=== PATIENT | female | born 2000 | race Caucasian/White ===

== ENCOUNTER 2024-06-29 14:49 | Emergency (ER) | payer BC, SELFPAY ==
[2024-06-29 14:57] VITALS: BP 134/99
--- NOTE | 2024-06-29 15:55 | ED.GENMED ---
History of Present Illness
General
Chief Complaint: Crisis Evaluation
Source: patient
Exam Limitations: none
Time Seen by Provider: 06/29/24 15:17
Nursing documentation reviewed up to this point in time: agreed with
History of Present Illness
History of Present Illness:
Patient is a 24-year-old female brought by family for 302. Parents are filing a 302 as pt has been 'acting psychotic' as per crisis.
Parents 302 request reports that patient 'is experiencing psychotic symptoms and not sleeping and not eating much. ' Parents report the patient is 'experiencing hallucinations and delusions and refusing to eat.' They do report she is 'paranoid.
'They do report she 'ran out of her medications,' however her appoint with psychiatry is on Monday.
Patient presents awake alert she is not answering questions and mumbling. She is able to tell me however she is aware she is a [facility] month and year. She has no complaints. She shakes her head no when I ask her if she has any suicidal
thoughts. She denies any pain.
Review of Systems
Review of Systems
Allergies reviewed?: Yes
All Other Systems: ROS reviewed and negative except as documented in HPI and ROS
Constitutional: Reports no symptoms
EENT: Reports no symptoms
Respiratory: Reports no symptoms
ABD/GI: Reports no symptoms
: Reports no symptoms
Musculoskeletal: Reports no symptoms
Skin: Reports no symptoms
Neurological: Reports no symptoms
Psychiatric: Reports no symptoms; Denies suicidal
Phy Exam
General Physical Exam
General Presentation: no apparent distress
General age: appears stated age
General Skin: warm and dry
General Habitus: normal
General Mental: alert
General Hydration: appears well hydrated
Cardiovascular Exam
Cardiovascular Exam: regular rate/rhythm, no murmur and normal peripheral pulses
Pulmonary Exam
Pulmonary Exam: lungs clear and no respiratory distress
Neurological Exam
Neurological Exam: alert and oriented x3
Musculoskeletal Exam
Musculoskeletal Exam: full ROM
Skin Exam
Skin Exam: normal color and warm/dry
Psychiatric Exam
Psychiatric Exam: other (mumbling does not answer questions with appropriate responses )
Course
Orders/Labs/Results
Orders:
Orders
06/29/24 15:58
Urine Drug Abuse Screen Urgent
Date Specimen was Collected: 06/30/24
Time Specimen was Collected: 00:05
06/29/24 15:59
Test Result ONCE
06/29/24 16:23
Crisis Consult Urgent
Reason for Consult: psychosis
06/29/24 16:43
Acetaminophen Urgent
Alcohol Urgent
Complete Blood Count/With Diff Urgent
Comprehensive Metabolic Panel Urgent
HCG, Serum Qualitative Screen Urgent
Comment: ADDON
Salicylate Urgent
06/29/24 17:48
Add On- LAB Urgent
Tests Added?: HCG Qual serum
06/29/24 18:37
Telemedicine Psychiatry Conslt Urgent
Service Line: Psychiatric
Nursing Station
Ordering Physician: Josy Lauren
Referring Physician
Cart Name: Wili
Psych Consult Reason: Suspect self/harm others
Psychiatry Consult Location: ED
Patient Needs to be Seen Emergently: Yes
Patient Admitted for NonPsychiatric Reasons: No
Patient in Restraints: No
Patient Requires a Restoration Technician: No
Patient's Legal Status is Involuntary: No
Patient Requires a Guardian: No
06/30/24 00:10
Fentanyl, Urine Urgent
Abnormal Lab Results
06/29/24 06/30/24
16:43 00:10
Absolute Monos (auto) 0.7 H 10^3/uL
(0.1-0.6)
AST 44 H U/L
(14-36)
Salicylates < 1.0 L mg/dl
(2.0-20.0)
Acetaminophen < 10 L ug/ml
(10-30)
Ur Amphetamines Screen Positive H
(Negative)
U Methamphetamines Scrn Positive H
(Negative)
U Marijuana (THC) Screen Positive H
(Negative)
06/29/24 16:43
06/29/24 16:43
Vital Signs
Initial and Last Documented VS:
Initial Vital Signs
Temp Pulse Resp BP Pulse Ox
97.6 F 100 16 134/99 100
06/29/24 14:57 06/29/24 14:57 06/29/24 14:57 06/29/24 14:57 06/29/24 14:57
Last Documented Vital Signs
Temp Pulse Resp BP Pulse Ox
97.6 F 100 16 134/99 100
06/29/24 14:57 06/29/24 14:57 06/29/24 14:57 06/29/24 14:57 06/29/24 14:57
MDM/Problems Addressed
Differential Diagnosis Includes:
not limited to: Psychotic paranoid behavior; bipolar exacerbation(patient has not been on her medication)
MDM/Problems Addressed:
24 yr old female brought to the ER as a 302 request by mom. patient was eval by crisis and crisis informs me that initial 302 was not upheld by mental health delegate.
I spoke with patient's mom who is concerned the patient is a danger to herself. She reports patient has not been on her medications since June 07 and when this happens patient will often run into traffic and requires hospitalization. She is
very concerned for patient's safety.
I did renotify crisis and request a telemetry psych consult .
1849: Awaiting telepsych consult patient calm cooperative and crisis 2 security at bedside. Mother in crisis waiting room . Care of pt transferred to DR Mo.
*Pulse Oximetry
Patient hypoxic: no
*Critical Care Note
Total Time (30-74mins, 75-104mins- exclusive of procedures): Not Applicable
ED Attending Note
-
Portions of this chart may have been created with voice recognition software.� Occasional wrong word or��sound alike� substitutions may have occurred due to the inherent limitations of voice recognition software.
Discharge Plan
Departure
Patient Disposition: Psych Facility
Date of Disposition: 06/30/24
Time of Disposition: 01:20
Discharge Problem:
Psychosis
Referrals:
NONE,* [Family Provider] -
Interventions
Interventions:
*Risk Screen - Suicide Last Done: 06/29/24 14:57
*General Assessment Last Done: 06/29/24 14:57
*Neglect/Abuse Screening Last Done: 06/29/24 14:57
ED- Fall Risk Assessment Last Done: 06/29/24 15:00
*ED COVID-19 Vaccine History Last Done: 06/29/24 14:57
*Nursing Disposition Last Done: 06/30/24 06:11
ED-Psychological Assessment Last Done: 06/29/24 15:00
Discharge Date and Time
Discharge Date/Time: 06/30/24 06:13
Print Language: ANDORRAN
[2024-06-29 16:59] LABS: % Basophils 0.5 % (0-2); % Eosinophils 1.2 % (0-6); % Immature Granulocytes 0.3 % (0-0.5); % Lymphocytes 28.3 % (20.5-51.1); % Monocytes 8.7 % (1.7-9.3); Absolute Eosinophils 0.1 10^3/uL (0-0.7); Absolute Lymphocytes 2.2 10^3/uL (1.2-3.4); Absolute Monocytes 0.7 10^3/uL (0.1-0.6); Absolute Neutrophils 4.7 10^3/uL (1.4-6.5); Hematocrit 37.2 % (37.0-47.0); Hemoglobin 12.8 g/dL (12.0-16.0); Mean Corp Hgb Conc. 34.4 g/dL (33.0-37.0); Mean Corpuscular Hgb 28.3 pg (27.0-31.0); Mean Corpuscular Volume 82.1 fL (81.0-99.0); Mean Platelet Volume 9.3 fL (7.4-10.4); Nucleated Red Blood Cells % 0 %; Platelet Count 258 10^3/uL (130-400); Red Blood Cell Count 4.53 10^6/uL (4.20-5.40); Red Cell Dist. Width 13.8 % (11.5-14.5); White Blood Cell Count 7.6 10^3/uL (4.8-10.8)
[2024-06-29 17:20] LABS: ALT (SGPT) 29 U/L (0-35); AST (SGOT) 44 U/L (14-36); Acetaminophen < 10 ug/ml (10-30); Albumin 4.3 g/dl (3.5-5.0); Alkaline Phosphatase 57 U/L (38-126); Blood Urea Nitrogen 14 mg/dl (7-17); Calcium 9.5 mg/dl (8.4-10.2); Carbon Dioxide 25 mmol/L (22-30); Chloride 102 mmol/L (98-107); Glucose 80 mg/dl (70-99); Potassium 3.8 mmol/L (3.5-5.1); Salicylate < 1.0 mg/dl (2.0-20.0); Sodium 137 mmol/L (135-145); Total Bilirubin 0.5 mg/dl (0.2-1.3); Total Protein 7.3 g/dl (6.3-8.2); eGFR > 60.00
[2024-06-29 17:25] LABS: Alcohol None Detected
[2024-06-29 18:19] LABS: HCG, Serum Qualitative Screen Negative
[2024-06-30 00:37] LABS: Amphetamines Positive (Negative); Barbiturates Negative (Negative); Benzodiazepines Negative (Negative); Buprenorphine Negative (Negative); Cocaine Negative (Negative); Marijuana Positive (Negative); Methadone Negative (Negative); Methamphetamines Positive (Negative); Opiates Negative (Negative); Phencyclidine Negative (Negative); Tricyclic Antidepressants Negative (Negative)
[2024-06-30 00:45] LABS: Fentanyl, Urine Negative (Negative)
== END 2024-06-30 06:13 ==
LOC: EMR 14:49
PROVIDERS: Nurse Practitioner; EMERGENCY PHYSICIAN Emergency Medicine
DX: F20.9 Schizophrenia, unspecified (principal); F31.9 Bipolar disorder, unspecified; Z60.2 Problems related to living alone; Z91.148 Patient's other noncompliance with medication regimen for other reason
CPT/HCPCS: 99283; 80053; 80143; 80179; 80306; 80307; 82077; 84703; 85025

== ENCOUNTER 2024-07-07 18:54 | Emergency (ER) | payer BC, SELFPAY ==
[2024-07-07 19:14] VITALS: BP 142/92
--- NOTE | 2024-07-07 19:19 | ED.GENMED ---
History of Present Illness
General
Chief Complaint: Psychiatric Problem
Source: patient and family (Mother)
Exam Limitations: none
Time Seen by Provider: 07/07/24 19:10
History of Present Illness
History of Present Illness:
This is a 24 year old female that is brought in by mom with c/o Suicidal behavior. Mom states that she was here 2 days ago and was denied a 302. Today patient told mom to give her a shot like they do dogs so she wont' wake up. Mom states that she is
psychotic and has not taken any medication since Jun 07. Mom states that she is not eating or sleeping. Patient just wants to sign herself out. Patient states that she has had chest pain, nausea and feels that this is her anxiety. Denies any
fever, chills, SOB, abd pain, vomiting, diarrhea, headache, dizziness.
Past History
Past History
ED Past Medical History: Asthma and Psychiatric (Anxiety, Bipolar Depression)
ED Past Surgical History: Orthopedic (knee surgery)
Social History
Tobacco: Vaping
Alcohol: Occasional
Personal: Single
Living: with family
Review of Systems
Review of Systems
All Other Systems: ROS reviewed and negative except as documented in HPI and ROS
Constitutional: Reports no symptoms; Denies fever or chills
EENT: Reports no symptoms
Respiratory: Denies cough or trouble breathing
Cardiac: Reports chest pain
ABD/GI: Reports nausea; Denies abdominal pain, vomiting or diarrhea
: Reports no symptoms; Denies dysuria, frequency or urgency
Musculoskeletal: Reports no symptoms
Skin: Reports no symptoms
Neurological: Reports no symptoms; Denies dizzy or headache
Psychiatric: Reports anxiety and suicidal
Phy Exam
General Physical Exam
General Presentation: no apparent distress
General age: appears stated age
General Skin: warm and dry
General Habitus: normal
General Mental: alert
General Hydration: appears well hydrated
ENT Exam
ENT Exam: TM's normal and neck supple
Eye Exam
Eye Exam: EOMI
Cardiovascular Exam
Cardiovascular Exam: regular rate/rhythm, no edema, no murmur and normal peripheral pulses
Pulmonary Exam
Pulmonary Exam: lungs clear, no respiratory distress, no rales, chest non tender, no crackles, no rhonchi, no wheezing and no cough
Gastrointestinal Exam
Gastrointestinal Exam: normal bowel sounds, non tender, soft, no organomegaly, no pulsatile mass and non distended
Musculoskeletal Exam
Musculoskeletal Exam: full ROM
Skin Exam
Skin Exam: normal color, warm/dry and no petechia
Psychiatric Exam
Psychiatric Exam: anxious and suicidal
Course
Orders/Labs/Results
Orders:
Orders
07/07/24 19:18
Crisis Consult Urgent
Reason for Consult: Psychotic, Not taking medication, SI
07/07/24 21:16
Test Result ONCE
07/07/24 21:57
Complete Blood Count/With Diff Urgent
Comprehensive Metabolic Panel Urgent
HCG, Serum Qualitative Screen Urgent
07/07/24 22:10
Urine Drug Abuse Screen Urgent
Abnormal Lab Results
07/07/24
21:57
Hct 36.6 L %
(37.0-47.0)
Absolute Monos (auto) 1.1 H 10^3/uL
(0.1-0.6)
Monocytes % 11.9 H %
(1.7-9.3)
Potassium 3.4 L mmol/L
(3.5-5.1)
BUN 29 H mg/dl
(7-17)
AST 38 H U/L
(14-36)
07/07/24 21:57
07/07/24 21:57
Dehydration. AST slightly elevated. Potassium very slightly low.
Vital Signs
Initial and Last Documented VS:
Initial Vital Signs
Temp Pulse Resp BP Pulse Ox
98.4 F 88 20 142/92 99
07/07/24 19:14 07/07/24 19:14 07/07/24 19:14 07/07/24 19:14 07/07/24 19:14
Last Documented Vital Signs
Temp Pulse Resp BP Pulse Ox
98.4 F 88 20 142/92 99
07/07/24 19:14 07/07/24 19:14 07/07/24 19:14 07/07/24 19:14 07/07/24 19:14
MDM/Problems Addressed
Differential Diagnosis Includes:
Suicidal, Anxious
MDM/Problems Addressed:
This is a 24 year old female that is brought in by mom with c/o psychosis. Mom states that she was here 2 days ago and now the patient states that she just wants to get a shot like a dog so she won't wake up. Mom states that she is not eating or
drinking. Patient rambling about not being social and just sitting. Mom states that she has not taken any of her medication since Jun 07.
Crisis referral.
Patient 302 was upheld
Into see patient. Patient was notified that the 302 was upheld. Explained that it was requested that we get her labs. Patient states that she just wants to sleep. Explained that she can sleep after the labs are drawn.
Patient has been excepted to [facility] and will leaving in the morning.
Chronic conditions affecting care: Psychiatric illness
Acute Exacerbation and/or Progression of Chronic Illness: Psychiatric illness
*Pulse Oximetry
Patient hypoxic: not evaluated
*EKG
Interpreted by ED Provider?: NA
Rate: EKG- N/A
*[employer] Interpretation
Rate: [employer]- N/A
*Critical Care Note
Total Time (30-74mins, 75-104mins- exclusive of procedures): Not Applicable
ED Attending Note
-
Portions of this chart may have been created with voice recognition software.� Occasional wrong word or��sound alike� substitutions may have occurred due to the inherent limitations of voice recognition software.
Discharge Plan
Departure
Patient Disposition: Psych Facility
Date of Disposition: 07/07/24
Time of Disposition: 21:04
Patient with high blood pressure during this ER visit?: Yes
Condition: Good
Covid-19: Not Applicable
Discharge Problem:
Suicidal ideation, Unable to care for self
Referrals:
UNKNOWN - PT NOT,INTERVIEWE [Family Provider] -
Activity Restrictions/Additional Instructions:
Please follow up as directed by Crisis.
Interventions
Interventions:
*Risk Screen - Suicide Last Done: 07/07/24 19:14
*General Assessment Last Done: 07/07/24 19:14
*Neglect/Abuse Screening Last Done: 07/07/24 19:14
ED- Fall Risk Assessment Last Done: 07/07/24 19:20
*ED COVID-19 Vaccine History Last Done: 07/07/24 19:20
ED-Psychological Assessment Last Done: 07/07/24 19:21
Discharge Date and Time
Print Language: OMANI
[2024-07-07 22:08] LABS: % Basophils 0.3 % (0-2); % Eosinophils 1.7 % (0-6); % Immature Granulocytes 0.2 % (0-0.5); % Lymphocytes 33.1 % (20.5-51.1); % Monocytes 11.9 % (1.7-9.3); % Neutrophils 52.8 % (42.2-75.2); Absolute Eosinophils 0.2 10^3/uL (0-0.7); Absolute Lymphocytes 2.9 10^3/uL (1.2-3.4); Absolute Monocytes 1.1 10^3/uL (0.1-0.6); Absolute Neutrophils 4.7 10^3/uL (1.4-6.5); Hematocrit 36.6 % (37.0-47.0); Hemoglobin 12.6 g/dL (12.0-16.0); Mean Corp Hgb Conc. 34.4 g/dL (33.0-37.0); Mean Corpuscular Hgb 28.6 pg (27.0-31.0); Mean Corpuscular Volume 83.2 fL (81.0-99.0); Mean Platelet Volume 9.5 fL (7.4-10.4); Nucleated Red Blood Cells % 0 %; Platelet Count 275 10^3/uL (130-400); Red Cell Dist. Width 13.6 % (11.5-14.5); White Blood Cell Count 8.8 10^3/uL (4.8-10.8)
[2024-07-07 22:13] LABS: HCG, Serum Qualitative Screen Negative
[2024-07-07 22:17] LABS: ALT (SGPT) 24 U/L (0-35); AST (SGOT) 38 U/L (14-36); Albumin 4.2 g/dl (3.5-5.0); Alkaline Phosphatase 58 U/L (38-126); Blood Urea Nitrogen 29 mg/dl (7-17); Calcium 9.2 mg/dl (8.4-10.2); Carbon Dioxide 24 mmol/L (22-30); Chloride 100 mmol/L (98-107); Glucose 84 mg/dl (70-99); Potassium 3.4 mmol/L (3.5-5.1); Sodium 135 mmol/L (135-145); Total Bilirubin 0.5 mg/dl (0.2-1.3); eGFR > 60.00
[2024-07-08] MEDS: ATIVAN 2 MG PO (04:14)
== END 2024-07-08 09:50 ==
LOC: EMR 18:54
PROVIDERS: Clinical Nurse Specialist Family Health; EMERGENCY PHYSICIAN Student in an Organized Health Care Education/Training Program
DX: R45.851 Suicidal ideations (principal); F31.9 Bipolar disorder, unspecified; F41.9 Anxiety disorder, unspecified; F17.290 Nicotine dependence, other tobacco product, uncomplicated; J45.909 Unspecified asthma, uncomplicated; Z74.1 Need for assistance with personal care
CPT/HCPCS: 99285; 80053; 84703; 85025

== ENCOUNTER 2024-07-22 20:14 | Emergency (ER) | payer BC, SELFPAY ==
--- NOTE | 2024-07-22 20:15 | ED.GENMED ---
ED Provider Triage
<Thien Fan PA-C - Last Filed: 07/22/24 20:18>
-
Patient seen by provider in Triage?: Seen in Triage
Attestation: A medical screening examination has been initiated by a qualified medical provider. Based on the assessment performed at this time, it has been determined that an emergent medical condition may exist and the patient has been informed
that further medical evaluation and possible additional diagnostic testing may be needed.
HPI: 24-year-old female presenting to the ER via EMS after patient reports that mom called the ambulance because she thought patient was in a psychotic episode. Patient not further elaborating. Patient denying any SI or HI but any further history
is very difficult to obtain. Patient with very flat affect, making minimal eye contact. Patient was brought to crisis for one-to-one observation and crisis consultation.
GENERAL: Alert , in no apparent distress
EYE: No visual abnormalities.
NECK: Trachea midline
ENT: No visible abnormalities.
LUNGS: No acute respiratory distress
NEUROLOGICAL: Alert and oriented
SKIN: Skin intact. No visible changes.
MUSCULOSKELETAL: Moving extremities normally
PSYCH: Flat affect, answers questions with 1-2 words only
This is a medical evaluation conducted in person to initiate diagnostic evaluation and provide initial therapeutics. Please see further documentation by the treating clinician.
History of Present Illness
<Thien Fan PA-C - Last Filed: 07/22/24 20:18>
General
Chief Complaint: Psychiatric Problem
Time Seen by Provider: 07/22/24 20:45
<FREDRICK Mayfield - Last Filed: 07/23/24 00:28>
General
Source: patient
Exam Limitations: none
History of Present Illness
History of Present Illness:
This is a 24 year old female that is brought in by mom. Patient states that her mom thinks she is in Psychosis. Patient states that she is not suicidal and has no Suicidal thoughts. Patient is laughing at questions. States that she did have diarrhea
today. Denies any fever, chills, chest pain, SOB, abd pain, nausea, vomiting, headache, dizziness.
Past History
<Thien Fan PA-C - Last Filed: 07/22/24 20:18>
Past History
ED Past Medical History: Asthma and Psychiatric (Anxiety, Bipolar Depression)
ED Past Surgical History: Orthopedic (knee surgery)
Social History
Tobacco: Vaping
Alcohol: Occasional
Personal: Single
Living: with family
<FREDRICK Mayfield - Last Filed: 07/23/24 00:28>
Past History
ED Past Surgical History: Orthopedic (knee surgery Left knee surgery X 2)
Social History
Alcohol: None
Living: with family (Mother)
Review of Systems
<FREDRICK Mayfield - Last Filed: 07/23/24 00:28>
Review of Systems
All Other Systems: ROS reviewed and negative except as documented in HPI and ROS
Constitutional: Reports no symptoms; Denies fever or chills
EENT: Reports no symptoms
Respiratory: Reports no symptoms; Denies cough or trouble breathing
Cardiac: Reports no symptoms; Denies chest pain
ABD/GI: Reports diarrhea (Once Today); Denies abdominal pain, nausea or vomiting
: Reports no symptoms; Denies dysuria, frequency or urgency
Musculoskeletal: Reports no symptoms
Skin: Reports no symptoms
Neurological: Reports no symptoms; Denies dizzy or headache
Psychiatric: Reports no symptoms
Phy Exam
<FREDRICK Mayfield - Last Filed: 07/23/24 00:28>
General Physical Exam
General Presentation: no apparent distress
General age: appears stated age
General Skin: warm and dry
General Habitus: normal
General Mental: alert
General Hydration: appears well hydrated
ENT Exam
ENT Exam: TM's normal, pharynx normal and neck supple
Eye Exam
Eye Exam: EOMI
Cardiovascular Exam
Cardiovascular Exam: regular rate/rhythm, no edema, no murmur and normal peripheral pulses
Pulmonary Exam
Pulmonary Exam: lungs clear, no respiratory distress, no rales, chest non tender, no crackles, no rhonchi, no wheezing and no cough
Gastrointestinal Exam
Gastrointestinal Exam: normal bowel sounds, non tender, soft, no organomegaly, no pulsatile mass and non distended
Musculoskeletal Exam
Musculoskeletal Exam: full ROM and no edema
Skin Exam
Skin Exam: normal color, warm/dry, no rash and no petechia
Course
<Thien Fan PA-C - Last Filed: 07/22/24 20:18>
Orders/Labs/Results
Orders:
Orders
07/22/24 20:18
1:1 Observation - Suicide/ Violent Behavior As Directed
Crisis Consult Urgent
Reason for Consult: psychosis
Vital Signs
Initial and Last Documented VS:
Initial Vital Signs
Temp Pulse Resp BP Pulse Ox
98.4 F 98 20 126/90 100
07/22/24 20:16 07/22/24 20:16 07/22/24 20:16 07/22/24 20:16 07/22/24 20:16
Last Documented Vital Signs
Temp Pulse Resp BP Pulse Ox
98.4 F 98 20 119/81 100
07/22/24 20:16 07/22/24 20:16 07/22/24 20:16 07/22/24 21:27 07/22/24 20:16
<FREDRICK Mayfield - Last Filed: 07/23/24 00:28>
Orders/Labs/Results
Orders:
Orders
07/22/24 20:18
1:1 Observation - Suicide/ Violent Behavior As Directed
Crisis Consult Urgent
Reason for Consult: psychosis
Vital Signs
Initial and Last Documented VS:
Initial Vital Signs
Temp Pulse Resp BP Pulse Ox
98.4 F 98 20 126/90 100
07/22/24 20:16 07/22/24 20:16 07/22/24 20:16 07/22/24 20:16 07/22/24 20:16
Last Documented Vital Signs
Temp Pulse Resp BP Pulse Ox
98.4 F 98 20 119/81 100
07/22/24 20:16 07/22/24 20:16 07/22/24 20:16 07/22/24 21:27 07/22/24 20:16
<Kiran Vazquez DO - Last Filed: 07/22/24 21:55>
Orders/Labs/Results
Orders:
Orders
07/22/24 20:18
1:1 Observation - Suicide/ Violent Behavior As Directed
Crisis Consult Urgent
Reason for Consult: psychosis
Vital Signs
Initial and Last Documented VS:
Initial Vital Signs
Temp Pulse Resp BP Pulse Ox
98.4 F 98 20 126/90 100
07/22/24 20:16 07/22/24 20:16 07/22/24 20:16 07/22/24 20:16 07/22/24 20:16
Last Documented Vital Signs
Temp Pulse Resp BP Pulse Ox
98.4 F 98 20 119/81 100
07/22/24 20:16 07/22/24 20:16 07/22/24 20:16 07/22/24 21:27 07/22/24 20:16
<FREDRICK Mayfield - Last Filed: 07/23/24 00:28>
MDM/Problems Addressed
Differential Diagnosis Includes:
Psychiatric issues.
MDM/Problems Addressed:
This is a 24 year old female that is brought in by mom with c/o Psychosis. Patient states that her mom thinks she is in Psychosis. States that her mom controls her medication and she takes whatever she is given. Patient at this time seems to think
that answer questions is funny.
Spoke with Crisis and Mom is filling a 302. Will await further evaluation from Crisis.
Patient was seen by Crisis and they are waiting for Telepsych to see patient. They feel that the 302 may be upheld. Patient is being moved to the Crisis rooms in pod 1.
Patient was seen by Telepsych and the 302 was upheld.
Chronic conditions affecting care: Psychiatric illness
Acute Exacerbation and/or Progression of Chronic Illness: Psychiatric illness
<FREDRICK Mayfield - Last Filed: 07/23/24 00:28>
*Pulse Oximetry
Patient hypoxic: no
*EKG
Interpreted by ED Provider?: NA
Rate: EKG- N/A
*Telephone Maintainer Interpretation
Rate: Telephone Maintainer- N/A
*Critical Care Note
Total Time (30-74mins, 75-104mins- exclusive of procedures): Not Applicable
ED Attending Note
<Thien Fan PA-C - Last Filed: 07/22/24 20:18>
-
Portions of this chart may have been created with voice recognition software.� Occasional wrong word or��sound alike� substitutions may have occurred due to the inherent limitations of voice recognition software.
<Kiran Vazquez DO - Last Filed: 07/22/24 21:55>
ED Attending Note
Patient seen and examined by attending physician: Yes
I performed the substantive portion of visit, reviewed & personally made and approve the management plan that is documented in note by myself or CIARRA.: Yes
ED Attending Note:
agree with Nichelle's note.
Pt brought to the ER by parents for concerns for 'psychosis'. Pt has extensive psychiatric history and was recently discharged from an inpatient facility. Pt does not provide any useful history but laughs inappropriatly.
General: Awake, Alert,
Vitals: unremarkable
Head: Atraumatic
Eyes: Pupils equal, EOMI
Throat: Airway intact, no exudates
Neuro: Cranial nerves intact, muscle strength equal bilaterally, cerebellar exam normal
Skin: Warm, dry, no rash
Extremities: pulses equal b/l, no edema
Discharge Plan
Departure
Patient Disposition: Psych Facility
Date of Disposition: 07/23/24
Time of Disposition: 00:26
Patient with high blood pressure during this ER visit?: No
Condition: Good
Covid-19: Not Applicable
Discharge Problem:
Psychotic behavior, Bipolar
Instructions: Bipolar Disorder (DC)
Referrals:
UNKNOWN - PT NOT,INTERVIEWE [Family Provider] -
Activity Restrictions/Additional Instructions:
Follow up as directed by Crisis.
Interventions
Interventions:
*Risk Screen - Suicide Last Done: 07/22/24 20:16
*Neglect/Abuse Screening Last Done: 07/22/24 20:16
ED-Psychological Assessment Last Done: 07/22/24 21:59
Discharge Date and Time
Print Language: KOSOVAN
[2024-07-22 20:16] VITALS: BP 126/90
[2024-07-22 21:27] VITALS: BP 119/81
[2024-07-23 01:01] VITALS: BP 102/63
[2024-07-23 09:15] VITALS: BP 118/76
== END 2024-07-23 10:10 ==
LOC: EMR 20:14
PROVIDERS: EMERGENCY PHYSICIAN Emergency Medicine
DX: F31.9 Bipolar disorder, unspecified (principal); F29 Unspecified psychosis not due to a substance or known physiological condition; F17.290 Nicotine dependence, other tobacco product, uncomplicated; F25.9 Schizoaffective disorder, unspecified
CPT/HCPCS: 99285

== ENCOUNTER 2025-02-24 00:40 | Inpatient (IN) | payer BC, SELFPAY ==
[2025-02-23 21:47] VITALS: BP 104/81
[2025-02-23 22:13] LABS: Hematocrit 35.7 % (37.0-47.0); Hemoglobin 12.2 g/dL (12.0-16.0); Mean Corp Hgb Conc. 34.2 g/dL (33.0-37.0); Mean Corpuscular Volume 83.0 fL (81.0-99.0); Nucleated Red Blood Cells % 0 %; Platelet Count 268 10^3/uL (130-400); Red Cell Dist. Width 13.1 % (11.5-14.5)
[2025-02-23 22:26] LABS: HCG, Serum Qualitative Screen Negative
[2025-02-23 22:33] LABS: ALT (SGPT) 23 U/L (0-35); AST (SGOT) 31 U/L (14-36); Albumin 4.7 g/dl (3.5-5.0); Alkaline Phosphatase 52 U/L (38-126); Blood Urea Nitrogen 7 mg/dl (7-17); Calcium 9.4 mg/dl (8.4-10.2); Carbon Dioxide 19 mmol/L (22-30); Chloride 107 mmol/L (98-107); Glucose 93 mg/dl (70-99); Potassium 3.9 mmol/L (3.5-5.1); Sodium 139 mmol/L (135-145); Total Protein 8.1 g/dl (6.3-8.2); eGFR > 60.00
[2025-02-23 22:44] LABS: Acetaminophen 364 ug/ml (10-30)
--- NOTE | 2025-02-23 22:56 | ED.GENMED ---
History of Present Illness
General
Chief Complaint: Overdose Intentional
Source: patient and other (sister)
Exam Limitations: none
Time Seen by Provider: 02/23/25 22:07
History of Present Illness
History of Present Illness:
25-year-old female presents emergency department after intentionally ingesting alcohol, Advil, and Tylenol about 3 hours before presentation here. Patient states that she did this because she did not want to live. She denies any physical
complaints such as nausea, vomiting, chest pain, shortness of breath, bleeding. She is unable to provide details regarding amount of meds that she took, but says at least a handful or 2. She denies any other ingestions. She specifically denies
aspirin ingestion. Of note, police were dispatched by her boyfriend after he observed her throwing up. Patient was found to be in her home unconscious laying in her own vomit. There were empty beer cans next to her. Patient does admit to having
approximately 4 beers as well.
Past History
Past History
ED Past Medical History: Asthma and Psychiatric (Anxiety, Bipolar Depression)
ED Past Surgical History: Orthopedic (knee surgery Left knee surgery X 2)
Social History
Tobacco: Vaping
Alcohol: Occasional
Drug: Other (adderal (not prescribed for her))
Personal: Single
Living: with family (Mother)
Phy Exam
Physical Exam
Physical Exam:
GENERAL: Alert , in no apparent distress
EYE: pupils equal and reactive
NECK: Supple, no significant adenopathy.
ENT: o/p clr, mmm.
CARDIAC: Regular rate and rhythm .
LUNGS: Clear breath sounds bilaterally, no acute respiratory distress, no wheezes/rales/rhonchi
ABDOMEN: Soft, without focal tenderness, no r/g, no cvat
NEUROLOGICAL: Alert and oriented, no focal neuro deficits
SKIN: Warm and dry, skin intact.
MUSCULOSKELETAL: No edema, well perfused.
PSYCH: Flattened affect, reluctant to answer questions
Course
Orders/Labs/Results
Orders:
Orders
02/23/25 21:59
1:1 Observation - Suicide/ Violent Behavior As Directed
02/23/25 22:04
Test Result ONCE
02/23/25 22:05
Acetaminophen Urgent
Alcohol Urgent
Complete Blood Count/With Diff Urgent
Comprehensive Metabolic Panel Urgent
HCG, Serum Qualitative Screen Urgent
Salicylate Urgent
Comment: ADDON
02/23/25 22:56
Cardiac Monitoring- Treatment ONCE
02/23/25 22:57
Electrocardiogram (*1) Stat
Reason for Study: Other
Other Reason for Exam: overdose
EKG- Treatment ONCE
02/23/25 23:34
Acetylcysteine [Acetadote] 9,980 mg 0.45% Sodium Chloride 250 ml [0.45%NaCl] 250 ml IV NOW
02/23/25 23:52
PTT Urgent
Prothrombin Time Urgent
02/24/25 00:17
Admit/Transfer Patient As Directed
Co-Sign Provider:
Level of Care: Inpatient admission
Assign to:: ICU
Physician / Group: Keiry
Diagnosis: Acetaminophen overdose
Reason for Hospitalization: drug overdose
Expected length of stay greater than two midnights?: Yes
ELOS- Estimated Length of Stay in days: 2
I certify the patient meets the requirements for IP care: Yes
PRN Pain Medication Management As Directed
May give lesser potent ordered pain med per pt: Yes
preference::
Protocol:: Medication orders for pain may be administered in a
manner that supports deferring to patient preference
when the pt is:
- Requesting an ordered lesser potent pain medication.
Least to most potent pain medications are defined
as: acetaminophen < NSAID < tramadol < opioids
(morphine, oxycodone, hydromorphone).
- Requesting a lesser dose of the same medication IF
ORDERED.
- Requesting a less intrusive route of administration
if both routes are prescribed by the provider (PO <
IV).
02/24/25 00:24
Code Status As Directed
Resuscitation Status: Full Code
02/24/25 00:39
PRN Pain Medication Management As Directed
May give lesser potent ordered pain med per pt: Yes
preference::
Protocol:: Medication orders for pain may be administered in a
manner that supports deferring to patient preference
when the pt is:
- Requesting an ordered lesser potent pain medication.
Least to most potent pain medications are defined
as: acetaminophen < NSAID < tramadol < opioids
(morphine, oxycodone, hydromorphone).
- Requesting a lesser dose of the same medication IF
ORDERED.
- Requesting a less intrusive route of administration
if both routes are prescribed by the provider (PO <
IV).
02/24/25 00:45
Acetylcysteine [Acetadote] 3,320 mg 0.45% Sodium Chloride 500 ml [0.45%NaCl] 500 ml IV ONCE
02/24/25 01:52
Bisacodyl [Dulcolax] 10 mg RECTAL [id number] PRN
Diphenhydramine [Benadryl] 25 mg IV Q4HPRN PRN
Docusate W/Senna [Senokot-S] 1 tablet PO BIDPRN PRN
Ondansetron Injectable [Zofran] 4 mg IV Q6HPRN PRN
Polyethylene Glycol Powder [Miralax] 17 grams PO DAILYPRN PRN
02/24/25 01:52
PSYCHIATRY CONSULT Routine
Consulting Provider: Hilary Zarate
Was physician already notified: Yes
Reason for consult: suicidal attempt, h/o bipolar not taking prescribed abilify
Activity As Directed
Activity Level: As Tolerated
Vital Signs As Directed
Frequency: Per unit guidelines
Pulse Ox/spot Check [RESP] Routine
Quantity: 1
DX Deep Vein Thrombosis Video Routine
02/24/25 01:56
diazePAM [Valium Injection] 5 mg IV Q6HPRN PRN
02/24/25 04:21
Acetaminophen Q12H
Complete Blood Count/No Diff IN AM
Magnesium IN AM
PT/INR [Prothrombin Time] Q12H
02/24/25 05:00
Acetylcysteine [Acetadote] 6,660 mg 0.45% Sodium Chloride 1000 ml [0.45%NaCl] 1,000 ml IV ONCE
02/24/25 Breakfast
Regular
At Your Request: Limited, Edgerman Required
Does patient need a safe tray?: Yes
02/24/25 18:00
Enoxaparin Sodium [Lovenox] 40 mg SC QPM
02/24/25 19:28
Acetaminophen Q12H
LFT [Euifm-Xbqb-Vktobpf] Q12H
PT/INR [Prothrombin Time] Q12H
02/25/25 06:00
LFT [Kzpca-Ievb-Orvhoqu] Q12H
PT/INR [Prothrombin Time] Q12H
02/26/25 11:00
DC Protocol for Telemetry ONCE
Abnormal Lab Results
02/23/25
22:05
Hct 35.7 L %
(37.0-47.0)
Abs Immat Gran (auto) 0.1 H 10^3/uL
(0-0.05)
Absolute Monos (auto) 0.7 H 10^3/uL
(0.1-0.6)
Immature Gran % 0.6 H %
(0-0.5)
Carbon Dioxide 19 L mmol/L
(22-30)
Salicylates < 1.0 L mg/dl
(2.0-20.0)
Acetaminophen 364 H* ug/ml
(10-30)
02/23/25 22:05
02/23/25 22:05
Vital Signs
Initial and Last Documented VS:
Initial Vital Signs
Temp Pulse Resp BP Pulse Ox
98.0 F 78 20 104/81 99
02/23/25 21:47 02/23/25 21:47 02/23/25 21:47 02/23/25 21:47 02/23/25 21:47
Last Documented Vital Signs
Temp Pulse Resp BP Pulse Ox
98.2 F 70 14 142/75 98
02/24/25 15:38 02/24/25 19:00 02/24/25 19:00 02/24/25 19:00 02/24/25 18:14
*Pulse Oximetry
SaO2: 99
Oxygen Mode of Delivery: Room air
Patient hypoxic: no
*Critical Care Note
Total Time (30-74mins, 75-104mins- exclusive of procedures): 42
Update Note
Update Note:
Patient presents to the Emergency Department with reported laying on ground with vomit around her
Number and Complexity of Problems Addressed at the Encounter
� Chronic conditions affecting care:
� Acute Exacerbation and/or Progression of Chronic Illness:
� Differential Diagnosis includes: But not limited to depression, suicidal ideation, intentional alcohol overdose, intentional Tylenol overdose, etc. etc.
Amount and/or Complexity of Data to be Reviewed and Analyzed
� I performed an independent evaluation of and my interpretation is:
EKG:
CT:
Xrays:
Laboratory Studies: Tylenol level resulted and noted to be elevated. Aspirin and coags unremarkable
Other:
� Review of other/old records reveals:
� Clinical information was obtained by an independent historian:
� Prescriptions/Medications Considered but not given:
� Further testing considered but not performed:
Risk of Complications and/or Morbidity or Mortality of Patient Management
� Social determinants of health affecting care: Case discussed with patient's mother who is now bedside and very supportive. She describes a longstanding history of bipolar disorder, and medication noncompliance. She was
updated regarding patient's diagnosis and plan of care.
� Discussion with other providers (PCP, Hospitalists, Consultants, etc): Case discussed with [facility] toxicology, Dr. Gueavra. She agrees with treatment thus far, recommends that we use a double dose for the third bag of
Acetadote and give a one-time dose of fomepizole here 15 mg/kg. After Acetadote protocol is complete, if acetaminophen level is 0, ALT and AST are normal, and INR is less than 2, treatment would be considered complete. If any of these lab values
are abnormal, they should be consulted again with consideration for further treatment with Acetadote etc.
� Escalation of care including admission/observation vs risk of discharge considered: Given patient's intent to harm herself, 302 was filed by police, and will be upheld. 1-[address] Patient will be admitted to the ICU,
hospitalist made aware, Acetadote protocol initiated.
Note subsequent tt sent to hospitalist (Dr Gusman) regarding recommendations for bag #3 at double dose.
ED Attending Note
-
Portions of this chart may have been created with voice recognition software.� Occasional wrong word or��sound alike� substitutions may have occurred due to the inherent limitations of voice recognition software.
Discharge Plan
Departure
Patient Disposition: Admit
Date of Disposition: 02/24/25
Time of Disposition: 00:19
Admit to: ICU
Presentation/result/management discussed w/ accepting MD/DO: Hospitalist
Condition: Critical
Discharge Problem:
Acetaminophen overdose
Interventions
Interventions:
*Risk Screen - Suicide Last Done: 02/23/25 21:55
*General Assessment Last Done: 02/23/25 21:47
*Neglect/Abuse Screening Last Done: 02/23/25 23:33
*ED- Fall Risk Assessment Last Done: 02/23/25 21:55
*ED COVID-19 Vaccine History Last Done: 02/23/25 23:33
*Nursing Disposition Last Done: 02/24/25 02:04
ED- Cardiac Assessment Last Done: 02/23/25 21:55
ED- Neurological Assessment Last Done: 02/23/25 21:55
ED-Psychological Assessment Last Done: 02/23/25 21:55
ED- Pulmonary Assessment Last Done: 02/23/25 21:55
Discharge Date and Time
Discharge Date/Time: 02/24/25 02:05
[2025-02-23 23:13] VITALS: BMI 21.7
[2025-02-23 23:24] VITALS: BP 113/81
--- NOTE | 2025-02-23 23:25 | PTCARENOTE ---
Instructed Pt to get changed into paper scrubs per 302 policy, pt uncooperative. Pt laying under her blankets and will not move. Pt's sister at the bedside. Continued to ask Pt to get unchanged, Pt is very reluctant, cursing at staff, increasing
aggressive and threw her bra at this RN. Pt had vape in her hand, asked Pt to hand over the vape and she refused. This RN asked again, Pt began to smoke the vapre and then handed it over. Pt states 'This is so fucking stupid. You are so dumb.'
Changed Pt into paper scrubs. New IV site placed, previous one was ripped out but Pt. VS obtained. Pt continues to be uncooperative and rude to staff. 1:[address] Pt's mother and step dad arrived. Pt more cooperative.
[2025-02-23 23:31] VITALS: BP 113/81
[2025-02-23] MEDS: ACETADOTE 299.9 MG IV (23:37)
--- NOTE | 2025-02-23 23:49 | HPS.HSE ---
Family Physician
-
Family Physician: NOT KNOW UNKNOWN - PT DOES
Chief Complaint
-
Drug overdose
History of Present Illness
This is a 25-year-old female with past medical history significant for bipolar disorder, schizoaffective disorder with history of suicidal ideation and attempts in the past presents to the emergency department after suicidal attempt with medication
overdose.
According to family members patient is currently not compliant with medication including Abilify and Klonopin. She has not been having any symptoms of obinna, delusions or hallucinations according to family members. She has not otherwise been ill.
She apparently was found facedown in her vomitus this evening. Patient stated to me that she took medications at around 7 PM. She states she wanted to injure her self but did not provide a specific reason. She states she took ibuprofen as well as
Tylenol but does not recall the exact amounts and stated a handful. She has also taken some Adderall.
On arrival in the emergency department she was 302. Blood pressure was 113/81 with a pulse of 102 and she was satting 98% on room air.
CBC was unremarkable, electrolytes BUN and creatinine were all normal. LFTs were normal. INR is pending.
Acetaminophen level 3 hours after presumed ingestion was 360.
ECG shows a normal sinus rhythm no acute ST or T wave changes.
Medical History
Past Medical History
Past Medical History: Reports Asthma and Psychiatric (schizoaffective disorder, anxiety, bipolar)
Past Surgical History: Reports Orthopedic (Left knee surgery)
Social History
Tobacco: Non-smoker
Alcohol: Occasional
Drug: None
Personal: Single
Employment: Not Employed
Family History
Family History: Not pertinent
Allergies / Home Medications
Allergies reflects when Allergies were last updated in [employer]
Home Medications with original date entered in [employer]
Allergy/Medication List:
Allergies
Allergy/AdvReac Type Severity Reaction Status Date / Time
No Known Allergies Allergy Verified 02/23/25 21:47
Home Medications
aripiprazole 15 mg tablet 15 mg PO DAILY 02/24/25
Review of Systems
-
History Source: Patient
Constitutional: Reports No Symptoms
EENT: Reports No Symptoms
Respiratory: Reports No Symptoms
Cardiac: Reports No Symptoms
Abdomen/GI: Reports No Symptoms
: Reports No Symptoms
Musculoskeletal: Reports No Symptoms
Skin: Reports No Symptoms
Neurological: Reports No Symptoms
Endocrine: Reports No Symptoms
Hematologic/Lymphatic: Reports No Symptoms
Psych: Reports Suicidal
Physical Exam
Vital Signs
Vital Signs
Temp Pulse Resp BP Pulse Ox
97.6 F 102 18 113/81 100
02/23/25 23:31 02/23/25 23:31 02/23/25 23:31 02/23/25 23:31 02/23/25 23:31
Physical Exam
General: Well Developed, Well Nourished and No Apparent Distress
HEENT: NormoCephalic, Moist mucous membranes and Atraumatic
Respiratory: Clear
Cardiac: S1/S2 and Regular Rhythm; No Murmur or Rub
GI: Soft, Non Tender, Non Distended and Normal Bowel Sounds; No Organomegaly
Rectal: Deferred by Provider
Musculoskeletal: No Clubbing, No Cyanosis and No Edema
Skin: No Rash
Neuro: Nonfocal/grossly intact
Psych: Calm
Laboratory Results
-
02/23/25 22:05
02/23/25 22:05
Laboratory Results
Total Bilirubin 0.6 mg/dl (0.2-1.3) 02/23/25 22:05
AST 31 U/L (14-36) 02/23/25 22:05
ALT 23 U/L (0-35) 02/23/25 22:05
Alkaline Phosphatase 52 U/L (38-126) 02/23/25 22:05
Data Reviewed
-
Medical Tests (Nuc Med, Echo, EKG etc): Image Personally Visualized and interpreted
Lab Data: Labs Reviewed by me
Old Records: Reviewed
Impression/Plan
-
IMPRESSION:
Suicidal ideation with intentional overdose of acetaminophen.
PLAN:
Acetaminophen overdose - level is 364 approximately 3 hours after intake. Given unknown exact amount of intake will be admitted for overdose and treatment. Normal LFTs
- admit to ICU
- obtain 4 hours acetaminophen level
- fomepizole
- 21 hour NAC protocol with doubling of the 16 hour bag
- LFTs, inr and acetaminophen level q 12 hours
- stopping NAC after 21 hours if lfts, inr and acetaminophen levels are normal
- serial examinations
- d/w poison control
- Ordnance Handler consult
Suicidality
- 1:1
- psych consultation
- anxiolytics prn
DVT PPX - lovenox sq
Code status - Full Code
[2025-02-24] VITALS (32 sets, daily range): BP systolic 90–142; BP diastolic 59–86; BMI 21.7
[2025-02-24 00:09] LABS: INR 0.99; PT 13.4 Sec (11.4-14.6)
[2025-02-24 00:10] LABS: APTT 26.2 Sec (23.4-35.0)
[2025-02-24 00:13] LABS: Salicylate < 1.0 mg/dl (2.0-20.0)
[2025-02-24] MEDS: ACETADOTE 516.6 MG IV (01:10)
[2025-02-24] MEDS: ZOFRAN 4 MG IV (01:15)
--- NOTE | 2025-02-24 01:20 | PTCARENOTE ---
Pt vomited small amout of light brown liquid with traces of red liquid, made aware. Zofran ordered and given. Additional iv site placed. mom at the bedside. 1:[address] vss.
[2025-02-24] MEDS: FOMEPIZOLE 101 MG IV (01:23)
--- NOTE | 2025-02-24 03:36 | PTCARENOTE ---
Pt arrived from ED ~0200. Pt accompanied by mother. Pt is AAO3, agitated/angry/uncooperative. Pt denies pain. Yelling at staff when asked questions or during care. Telemetry rhythm reveals SR, HR 80-90's, no edema noted, palpable peripheral pulses
present. Lung sounds are clear, decreased b/l half way up, pox 93-100% on room air. +BS, abdomen soft. Pt denies current nausea, received Zofran in ED. OOB to BSC w standby assist, voided yellow urine. Skin intact. R AC int received w Fomepizole
infusing from ED; flushed and capped when completed. R hand int received w Acetylcysteine infusing from ED per order. Partial CHG bath provided upon arrival from ED. 1:1 staff at bedside per protocol. Pt's mother remains at bedside. Pt uncooperative
with answering admission questions, mother answered as able. Reviewed case w PARUL Bruce. Will continue to monitor closely.
[2025-02-24] MEDS: NICODERM TRANSDERMAL 21 MG TRANSDERM (04:22)
[2025-02-24 04:31] LABS: Glucose - Point of Care 121 mg/dl (70-99)
[2025-02-24 04:31] LABS: Hematocrit 35.2 % (37.0-47.0); Hemoglobin 12.1 g/dL (12.0-16.0); Mean Corp Hgb Conc. 34.4 g/dL (33.0-37.0); Mean Corpuscular Volume 84.6 fL (81.0-99.0); Platelet Count 284 10^3/uL (130-400); Red Cell Dist. Width 13.1 % (11.5-14.5)
[2025-02-24 04:46] LABS: INR 1.16; PT 15.1 Sec (11.4-14.6)
[2025-02-24 05:01] LABS: ALT (SGPT) 23 U/L (0-35); AST (SGOT) 31 U/L (14-36); Acetaminophen 185 ug/ml (10-30); Albumin 4.3 g/dl (3.5-5.0); Alkaline Phosphatase < 20 U/L (38-126); Blood Urea Nitrogen 5 mg/dl (7-17); Calcium 9.0 mg/dl (8.4-10.2); Carbon Dioxide 20 mmol/L (22-30); Chloride 108 mmol/L (98-107); Estimated Creatinine Clearance > 125 ml/min; Glucose 90 mg/dl (70-99); Magnesium 1.5 mg/dl (1.6-2.3); Potassium 4.7 mmol/L (3.5-5.1); Sodium 139 mmol/L (135-145); Total Protein 7.4 g/dl (6.3-8.2); eGFR > 60.00
--- NOTE | 2025-02-24 05:08 | PTCARENOTE ---
Pt sleeping when undisturbed. 1:1 maintained for pt safety. Following MSAS. No change in assessment. Will monitor closely.
[2025-02-24] MEDS: MAGNESIUM SULFATE 50 IV (05:29)
[2025-02-24] MEDS: FLUSH (NSS) 2 FLUSH IV (05:30)
[2025-02-24] MEDS: ACETADOTE 1033.3 MG IV (05:35)
--- NOTE | 2025-02-24 07:32 | CON.INTV ---
Consultation
Consultation Request
Date/Time Consultation Requested: 1:52 02/24/25
Date/Time Consultation Performed: 7:00 02/24/25
Medical History
-
History of Present Illness:
25yoF PMH schizoaffective disorder presenting from polypharmacy overdose consisting of tylenol, ibuprofen, alcohol and possibly adderall.
Talisha is in the room [place] Lamar stayed local since she had work this weekend. 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 Mom
reports she took a handful of advil and tylenol with rum.
Mom reports that Lamar has not been taking her medications recently which is evident in her mood and symptoms, stating she has been complaining of feeling depressed. Prior suicide attempt 8-9years ago. Mom explained that Lamar did an intensive
outpt program over this summer that was very beneficial for her. Follows at [facility].
Today, Lamar denies headache, nausea, vomiting, or abdominal pain. She remembers vomiting yesterday and wants to leave to get to work. Denies SOB, cough.
FH: Father- schizoaffective disorder; of suicide
Home medications: Abilify, Depakote, klonipin
Past Medical History
Past Medical History: Psychiatric (schizoaffective)
Social History
Living: With Family (at home with family)
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
Family History
Family History: Other (Father: schizoaffective disorder, suicide)
Allergies / Home Medications
Allergies
Allergy/AdvReac Type Severity Reaction Status Date / Time
No Known Allergies Allergy Verified 02/23/25 21:47
Home Medications
�Medication �Instructions �Recorded �Confirmed �Last Taken �Type
Depakote 02/24/25 Unknown History
Klonopin 02/24/25 Unknown History
aripiprazole 15 mg tablet 15 mg PO DAILY 02/24/25 02/24/25 Unknown History
Review of Systems
-
History Source: Patient
All other systems: Negative unless noted
Vitals / Labs / Diagnostic Testing
Vital Signs
Temp Pulse Resp BP Pulse Ox
97.8 F 81 16 108/72 98
02/24/25 07:13 02/24/25 07:00 02/24/25 07:00 02/24/25 07:00 02/24/25 07:00
Lab Data
02/24/25 04:21
02/24/25 04:21
Laboratory Results
02/23/25 02/24/25
23:52 04:21
PT 13.4 15.1 H
INR 0.99 1.16
APTT 26.2
Diagnostic Testing:
Physical Exam
-
HEENT: Normocephalic and Anicteric
Cardiovascular: S1/S2 and Regular Rhythm
Respiratory: Clear and Non-Labored Respirations
GI: Soft and Non Tender
Neurology: Awake, Alert and No Motor Deficits
Skin: Warm and Dry
General: Comfortable
Exam:
Psych: irritable upon awakening, linear thought process.
Assessment
-
25yoF PMH schizoaffective disorder with prior suicide attempts presenting after polypharmacy overdose.
Pt found facedown in emesis brought in for polypharmacy OD acetaminophen, ibuprofen, alcohol. No current signs of aspiration. CXR clear, lung sounds clear bilaterally, afebrile, WBC WNL. Pt received fomepizole and acetylcysteine upon presentation.
Acetaminophen levels decreasing. No evidence of metabolic acidosis.
No current signs of metabolic encephalopathy
Denies pain at this time.
Pain/sedation: PRN
RASS goals: 0
1:1 sit. Psychiatry consulted.
Hold Abilify and depakote, both hepatically processed, in setting of tylenol overdose. Psychiatry recommendations appreciated.
Hemodynamically stable.
Requiring no pressors.
ECG normal sinus no abnormalities.
Monitor QTc
Oxygen needs: RA
No prior history of lung disease.
Concern of aspiration pneumonia in setting of vomitus with AMS on presentation.
CXR reviewed indicating no consolidation. Afebrile, WBC WNL
Supplemental O2 as indicated to maintain sats > 89%
Normal Diet. Safe tray
Aspiration precautions, HOB > 30 degrees
Speech therapy eval can be considered if at elevated risk
GI prophylaxis not indicated at this time. Pt took unknown amount of ibuprofen. Monitor for concern of ulcer
Continue acetylcysteine. Acetaminophen levels decreased to 185 from 264. Follow curve
Fomepizole given yesterday. LFTS WNL.
Follow urine output, critical I/Os
Replete electrolytes as needed.
No metabolic acidosis or MONICA currently in setting of tylenol and ibuprofen overdose
Afebrile and WBC WNL on presentation
Hold off on antibiotics at this time
Follow fever trend, WBC count
CBC stable, no signs of bleeding or coagulopathy.
DVT prophylaxis as assessed based on risk, including mechanical SCDs. Lovenox.
Can transfuse if indicated for Hb <7, plt < 10
INR WNL
No prior h/o diabetes or thyroid disease
Monitor accuchecks PRN/SS coverage if needed
Disposition: manager area and psychiatry recommendations for inpatient psych facility appreciated once medically stable
--- NOTE | 2025-02-24 07:41 | W.PN.HOSP.TC ---
Today's Communication/Plan
-
see plan
Assessment / Plan
Assessment / Plan
IMPRESSION:
Suicidal ideation with intentional overdose of acetaminophen.
PLAN:
Acetaminophen overdose - level is 364 approximately 3 hours after intake. Given unknown exact amount of intake will be admitted for overdose and treatment. Normal LFTs
- admitted to ICU
- Acetaminophen level 3 hours post ingestion 364 --> 185 6 hours later
- s/p Fomepizole
- 21 hour NAC protocol with doubling of the 16 hour bag
- LFTs, inr and acetaminophen level q 12 hours
- stopping NAC after 21 hours if lfts, inr and acetaminophen levels are normal
- serial examinations
- ER discussed with poison control:
Per ER NOte: 'Case discussed with [facility] toxicology, Dr. Guevara. She agrees with treatment thus far, recommends that we use a double dose for the third bag of Acetadote and give a one-time dose of fomepizole here 15 mg/kg. After Acetadote
protocol is complete, if acetaminophen level is 0, ALT and AST are normal, and INR is less than 2, treatment would be considered complete. If any of these lab values are abnormal, they should be consulted again with consideration for further
treatment with Acetadote etc.'
- Talent Buyer consult
Suicidality
- 1:1
- psych consultation
- anxiolytics prn
DVT PPX - lovenox sq
Code status - Full Code
51 minutes spent on patient care
Anticipated Discharge: 24 - 48 hours
Subjective/Interval History
-
Date of Service: February 24, 2025
patient is upset that she has to be here
denies pain
Objective Data
-
Labs:
Laboratory Results
02/23/25 02/23/25 02/24/25
22:05 23:52 04:21
WBC 8.3 7.5
Hgb 12.2 12.1
Hct 35.7 L 35.2 L
Plt Count 268 284
PT 13.4 15.1 H
INR 0.99 1.16
APTT 26.2
Sodium 139 139
Potassium 3.9 4.7
Chloride 107 108 H
Carbon Dioxide 19 L 20 L
BUN 7 5 L
Creatinine 0.6 0.5 L
Glucose 93 90
Calcium 9.4 9.0
Total Bilirubin 0.6 0.6
AST 31 31
ALT 23 23
Alkaline Phosphatase 52 < 20 L
02/24/25
18:00
WBC
Hgb
Hct
Plt Count
PT Pending
INR Pending
APTT
Sodium
Potassium
Chloride
Carbon Dioxide
BUN
Creatinine
Glucose
Calcium
Total Bilirubin Pending
AST Pending
ALT Pending
Alkaline Phosphatase Pending
Vital Signs:
Vital Signs
Temp Pulse Resp BP Pulse Ox
97.8 F 81 16 108/72 98
02/24/25 07:13 02/24/25 07:00 02/24/25 07:00 02/24/25 07:00 02/24/25 07:00
I&O
02/23/25 02/24/25 02/25/25
06:59 06:59 06:59
Intake Total 630.5 / 630.5
Output Total 1100 / 1100
Balance -469.5 / -469.5
Review of Systems
-
History Source: Patient
All other systems: Reviewed and negative
Physical Exam
-
General: No Apparent Distress
HEENT: PERRLA
Respiratory: Clear to Auscultation; Negative Wheezes
Cardiac: Regular Rhythm and S1/S2
GI: Soft and Nontender
Musculoskeletal: No Edema
Skin: Warm and Dry; Negative Rash
Neuro: AO x 3
Psych: Calm
Data Reviewed
-
Diagnostic Radiology: Report Reviewed by me
Labs: Labs Reviewed by me
--- NOTE | 2025-02-24 08:17 | PTCARENOTE ---
Complete assessment done, Pt oriented x3, cooperative, but expresses that she 'wants to go home now'. It was calmly explained that she will need to stay in the hospital today. Pt is a 1:1 observation for suicide precaution. Pt's mother and father in
room, and was updated on labs, all questions answered. Pt is SR as per monitor, BP stable, magnesium iv completed. Acetylcysteine iv infusing as ordered. O2 sat=98% on R/A, lobes cl bilat, diminished at bases bilat. +BSs, menu given to pt to choose
breakfast. Pt denies the need to void at this time. Dr Del Valle update, and in to room to see pt.
--- NOTE | 2025-02-24 13:38 | PTCARENOTE ---
Pt gives one word responses or shakes head appropriately, does follow commands. Lunch ordered. 1:1 suicide watch maintained for pt safety.
--- NOTE | 2025-02-24 15:49 | CS.PSYCHR ---
Consult Summary - Psychiatry
-
Seen by me on 02/24/2025 from 3pm-3:35pm
Psychiatry consult for intentional OD in a suicide attempt by consumption of 'a handful or two' of Advil and Tylenol and 4 beers. Per chart, police were dispatched after her boyfriend witnessed her throwing up. Patient was found lying her own vomit.
Patient and her mom are present in room and patient states she does not care if her mom is present. She admits to feeling 'miserable' for several weeks prior to this attempt and says she wishes her attempt had been successful in ending her life. She
says she shows the medications above because they were what was available at her house. She denies manic or psychotic symptoms and says she has been depressed 'my whole life.' Explained she is currently on a 302. She admits to non compliance with
psychiatric medications/treatment.
02/23/2025 acetaminophen level 364, 185 today. salicylates negative
MSE- no eye contact. mouth covered with bed sheet. non spontaneous impoverished speech. depressed mood and affect. minimally cooperative with questions. wishes SA had been successful. denies HI/AVH. no delusions. Poor I/J. fully oriented
past psych- long history of bipolar I disorder with multiple past admissions including [facility] on 302s for obinna with psychosis. completed IOP over the summer. non compliant with medications. Chart indicates most recent medication
was abilify. this is her first suicide attempt. She does not see an outpatient psychiatrist or therapist
D&A- denies but mom states patient misuses oxy and adderall. patient then confirms she gets these off the streets
Social- Lives with mom, step father and siblings. 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
PMH- asthma
Family history- father bipolar, committed suicide 2 years ago by unclear method
A/P- 25 yo female with history of Bipolar I disorder, current episode depressed without psychotic features admitted medically after intentional OD to end her life. She is currently on a 302 that was upheld on 02/23/2025. Recommendation remains for
acute inpatient psychiatric hospitalization for safety, stabilization and medication management when medically stable. Continue 1:1 for safety. Will hold off for now on starting mood stabilizing medication. Psychiatry will follow.
[2025-02-24] MEDS: LOVENOX 40 MG SC (18:35)
[2025-02-24 19:48] LABS: INR 1.21; PT 15.6 Sec (11.4-14.6)
[2025-02-24 20:01] LABS: ALT (SGPT) 21 U/L (0-35); AST (SGOT) 24 U/L (14-36); Acetaminophen 17 ug/ml (10-30); Albumin 3.8 g/dl (3.5-5.0); Alkaline Phosphatase 31 U/L (38-126); Total Protein 6.8 g/dl (6.3-8.2)
--- NOTE | 2025-02-24 21:46 | PTCARENOTE ---
Pt received at 19:00. AOx3, drowsy but easily arousable to verbal stimuli. Pt sleeping intermittently. SR, HR 70s-80s. Pulses palpable. RA, breath sounds clear, spot check pulse ox, 98%. Poor appetite, + bowel sounds. No BM or urine output at this
time. Pt denies pain at this time. Safe environment maintained, call hodge within reach. 1:1 observation maintained.
[2025-02-25] VITALS (14 sets, daily range): BP systolic 97–128; BP diastolic 65–84; BMI 22.0
--- NOTE | 2025-02-25 04:30 | PTCARENOTE ---
Pt agitated when woken up to get AM labs. Pt began cursing at staff and calling names. Once labs collected, pt then calm and fell back to sleep. Assessment unchanged. 1:1 continues.
[2025-02-25 04:59] LABS: INR 1.29; PT 16.3 Sec (11.4-14.6)
[2025-02-25 05:15] LABS: ALT (SGPT) 17 U/L (0-35); AST (SGOT) 20 U/L (14-36); Acetaminophen < 10 ug/ml (10-30); Albumin 2.9 g/dl (3.5-5.0); Alkaline Phosphatase 32 U/L (38-126); Blood Urea Nitrogen 9 mg/dl (7-17); Calcium 7.7 mg/dl (8.4-10.2); Carbon Dioxide 21 mmol/L (22-30); Chloride 117 mmol/L (98-107); Estimated Creatinine Clearance > 125 ml/min; Glucose 70 mg/dl (70-99); Magnesium 1.6 mg/dl (1.6-2.3); Potassium 3.1 mmol/L (3.5-5.1); Sodium 139 mmol/L (135-145); Total Protein 5.5 g/dl (6.3-8.2); eGFR > 60.00
[2025-02-25 05:47] LABS: Hematocrit 31.1 % (37.0-47.0); Hemoglobin 10.3 g/dL (12.0-16.0); Mean Corp Hgb Conc. 33.1 g/dL (33.0-37.0); Mean Corpuscular Volume 85.9 fL (81.0-99.0); Platelet Count 218 10^3/uL (130-400); Red Cell Dist. Width 12.8 % (11.5-14.5)
[2025-02-25] MEDS: MAGNESIUM SULFATE 50 IV (06:21)
[2025-02-25] MEDS: KCL 270 MEQ IV (06:22)
--- NOTE | 2025-02-25 07:32 | W.PN.INTV ---
Documented by User: Caroline Cevallos MD, Resident 02/25/25 10:25
Today's Communication / Plan
Recommendations
Plan reviewed with attending.
Medically stable to downgrade.
Assessment
-
25yoF H schizoaffective disorder with prior suicide attempts presenting after suicide attempt with polypharmacy overdose.
AFVSS. Acetaminophen levels decreased to <10. Medically stable. Received electrolytes repletions this am.
Pt on 302 that began 02/23. Defer disposition recommendations to psych.
No current signs of metabolic encephalopathy
Denies pain at this time.
Pain/sedation: PRN
RASS goals: 0
1:1 sit. Psychiatry consulted.
Hold Abilify and depakote. Liver enzymes remain WNL, can consider restarting. Psychiatry recommendations appreciated.
Nicotine patch
Hemodynamically stable.
Requiring no pressors.
ECG normal sinus no abnormalities.
Oxygen needs: RA
No prior history of lung disease.
Low suspicion for aspiration pneumonia. CXR negative. Afebrile. WBC WNL.
Supplemental O2 as indicated to maintain sats > 89%
Normal Diet. Safe tray
Aspiration precautions, HOB > 30 degrees
Speech therapy eval can be considered if at elevated risk
GI prophylaxis not indicated at this time. Pt took unknown amount of ibuprofen. Monitor for concern of ulcer
Acetaminophen levels decreased. Stop acetylcysteine
LFTS WNL.
Follow urine output, critical I/Os
Replete electrolytes as needed.
No metabolic acidosis or MONICA
Afebrile and WBC WNL on presentation
Hold off on antibiotics at this time
Follow fever trend, WBC count
CBC stable, no signs of bleeding or coagulopathy.
DVT prophylaxis as assessed based on risk, including mechanical SCDs. Lovenox.
Can transfuse if indicated for Hb <7, plt < 10
INR WNL
No prior h/o diabetes or thyroid disease
Monitor accuchecks PRN/SS coverage if needed
Subjective Dataa
Subjective Data
Date of Service:
Date of Service: February 25, 2025
Subjective:
Pt denies nausea, vomiting, abdominal pain.
Objective Data
Data Reviewed
Vital Signs / I&O / Oxygen:
Vital Signs
Temp Pulse Resp BP Pulse Ox
97.8 F 64 16 103/69 99
02/25/25 04:15 02/25/25 06:00 02/25/25 06:00 02/25/25 06:00 02/25/25 06:29
Intake and Output
02/24/25 02/25/25 02/26/25
06:59 06:59 06:59
Intake Total 630.5 / 695.0 1367.5 / 1367.5
Output Total 1100 / 1100 750 / 750
Balance -469.5 / -405.0 617.5 / 617.5
SaO2 99
Physical Exam
General: Comfortable and Other (Pt denied physical exam.)
HEENT: Normocephalic and Anicteric
Neurology: Alert, Depressed and Other (awoken to voice)
Skin: Warm and Dry
Labs/Micro/Reports
Lab Data
02/25/25 04:20
02/25/25 04:20
Laboratory Results
02/24/25 02/25/25
19:28 04:20
PT 15.6 H 16.3 H
INR 1.21 1.29

Documented by User: Johann Arthur MD 02/25/25 10:51
Today's Communication / Plan
Recommendations
Plan reviewed with attending.
Medically stable to downgrade.
Attending addendum:
I reviewed this patient's case independently and in conjunction with the resident. I personally performed the tavera components of the evaluation and management of this critically ill patient, including the history, physical exam, and medical
decision-making. I was present during the tavera portions of care, reviewed the resident's documentation, and participated in the ongoing management of this patient requiring critical care. Total time spent providing critical care services today was
40 minute. I confirm the medical necessity of these services. I agree with documented assessment and plan
Johann Arthur MD, [facility], [facility]
--- NOTE | 2025-02-25 08:00 | PTCARENOTE ---
Assumed care of patient. Pt rec'd sleeping. Arousable to verbal stimuli. A&Ox3. Flat affect. Uncooperative and annoyed w/ care. Denies pain. Denies N/V. S1 S2 reg w/ NSR on monitor. +PP. No edema. On R/A. Lungs clear...diminished in
bases. Abdomen round. Voids in BSC. Skin WNL. VS obtained. 1:1 supervision. Safe environment confirmed. Will continue to monitor.
--- NOTE | 2025-02-25 08:02 | W.PN.HOSP.TC ---
Today's Communication/Plan
-
dispo planning for inpatient psych
Assessment / Plan
Assessment / Plan
IMPRESSION:
Suicidal ideation with intentional overdose of acetaminophen.
PLAN:
Acetaminophen overdose - level is 364 approximately 3 hours after intake.
- admitted to ICU
- s/p Fomepizole
- s/p 21 hour NAC protocol with doubling of the 16 hour bag
- LFTs, inr and acetaminophen level have remained WNL, Tylenol level now undetectable
- no need for further NAC
-appreciate Grand Scribe
-OK for DC to Psychiatric facility - will coordinate with CM
Suicidality
- 1:1
- psych consultation
- anxiolytics prn
DVT PPX - lovenox sq
Code status - Full Code
51 minutes spent on patient care
Anticipated Discharge: Within 24 hours
Subjective/Interval History
-
Date of Service: February 25, 2025
resting
doesn't want to speak to me
Objective Data
-
Labs:
Laboratory Results
02/25/25
04:20
WBC 6.5
Hgb 10.3 L
Hct 31.1 L
Plt Count 218 D
PT 16.3 H
INR 1.29
Sodium 139
Potassium 3.1 L D
Chloride 117 H
Carbon Dioxide 21 L
BUN 9
Creatinine 0.5 L
Glucose 70
Calcium 7.7 L
Total Bilirubin 0.7
AST 20
ALT 17
Alkaline Phosphatase 32 L
Vital Signs:
Vital Signs
Temp Pulse Resp BP Pulse Ox
98.1 F 64 16 103/69 99
02/25/25 07:54 02/25/25 06:00 02/25/25 06:00 02/25/25 06:00 02/25/25 06:29
I&O
02/24/25 02/25/25 02/26/25
06:59 06:59 06:59
Intake Total 630.5 / 695.0 1367.5 / 1367.5
Output Total 1100 / 1100 750 / 750
Balance -469.5 / -405.0 617.5 / 617.5
Review of Systems
-
History Source: Patient
All other systems: Reviewed and negative
Physical Exam
-
General: No Apparent Distress
HEENT: PERRLA
Respiratory: Clear to Auscultation; Negative Wheezes
Cardiac: Regular Rhythm and S1/S2
GI: Soft and Nontender
Musculoskeletal: No Edema
Skin: Warm and Dry; Negative Rash
Neuro: AO x 3
Psych: Depressed
Data Reviewed
-
Diagnostic Radiology: Report Reviewed by me
Labs: Labs Reviewed by me
--- NOTE | 2025-02-25 08:25 | PTCARENOTE ---
Nicotine patch applied to left upper arm per pt request.
[2025-02-25] MEDS: NICODERM TRANSDERMAL 21 MG TRANSDERM (08:28)
[2025-02-25] MEDS: KCL PO (08:29)
[2025-02-25] MEDS: KCL 40 MEQ PO (10:08)
--- NOTE | 2025-02-25 10:46 | W.PN.INTV ---
Today's Communication / Plan
Recommendations
Acetaminophen levels normal
Follow LFTs
1: 1
Psychiatry following
Stable for discharge out of ICU-call pulmonary if respiratory issues arise
Assessment
-
25yoF PMH schizoaffective disorder with prior suicide attempts presenting after suicide attempt with polypharmacy overdose.
AFVSS. Acetaminophen levels decreased to <10. Medically stable. Received electrolytes repletions this am.
N acetylcysteine can be discontinued
Pt on 302 that began 02/23. Defer disposition recommendations to psych.
No current signs of metabolic encephalopathy-mental status back to baseline
Denies pain at this time.
Pain/sedation: PRN
RASS goals: 0
1:1 sit.
Psychiatry consulted-correspondence reviewed
Hold Abilify and depakote. Liver enzymes remain WNL, can consider restarting. Psychiatry recommendations appreciated.
Nicotine patch added
Hemodynamically stable.
Requiring no pressors.
ECG normal sinus no abnormalities.
Oxygen needs: RA
No prior history of lung disease.
Low suspicion for aspiration pneumonia. CXR negative. Afebrile. WBC WNL.
Supplemental O2 as indicated to maintain sats > 89%
Normal Diet. Safe tray
Aspiration precautions, HOB > 30 degrees
Speech therapy eval can be considered if at elevated risk
GI prophylaxis not indicated at this time. Pt took unknown amount of ibuprofen. Monitor for concern of ulcer
Acetaminophen levels decreased. Stop acetylcysteine
LFTS WNL.
Follow urine output, critical I/Os
Replete electrolytes as needed.
No metabolic acidosis or MONICA
Afebrile and WBC WNL on presentation
Hold off on antibiotics at this time
Follow fever trend, WBC count
CBC stable, no signs of bleeding or coagulopathy.
DVT prophylaxis as assessed based on risk, including mechanical SCDs. Lovenox.
Can transfuse if indicated for Hb <7, plt < 10
INR WNL
No prior h/o diabetes or thyroid disease
Monitor accuchecks PRN/SS coverage if needed
Subjective Dataa
Subjective Data
Date of Service:
Date of Service: February 25, 2025
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
Subjective:
Alert and oriented, no complaints of shortness of breath, chest pain or abdominal pain
Review of Systems
General: Other (Per HPI)
Objective Data
Data Reviewed
Vital Signs / I&O / Oxygen:
Vital Signs
Temp Pulse Resp BP Pulse Ox
98.1 F 87 18 116/82 98
02/25/25 07:54 02/25/25 10:00 02/25/25 10:00 02/25/25 10:00 02/25/25 08:00
Intake and Output
02/24/25 02/25/25 02/26/25
06:59 06:59 06:59
Intake Total 630.5 / 695.0 1367.5 / 1367.5 400 / 400
Output Total 1100 / 1100 750 / 750
Balance -469.5 / -405.0 617.5 / 617.5 400 / 400
SaO2 98
Physical Exam
General: Respiratory Distress (n), Comfortable and Other (Pt denied physical exam.)
HEENT: Normocephalic and Anicteric
Cardiovascular: Regular Rhythm and Murmur
Respiratory: Clear, Wheeze (n), Crackles (n), Rhonchi, Non-Labored Respirations, Accessory Resp Muscle Use (n) and Stridor (n)
GI: Soft, Non Distended and Non Tender
Neurology: Awake, Alert, No Motor Deficits, Depressed and Other (awoken to voice)
Skin: Warm, Dry, Good Color, Cyanosis (n), Jaundice (n) and Rash (n)
Labs/Micro/Reports
Lab Data
02/25/25 04:20
02/25/25 04:20
Laboratory Results
02/24/25 02/25/25
19:28 04:20
PT 15.6 H 16.3 H
INR 1.21 1.29
--- NOTE | 2025-02-25 13:16 | PTCARENOTE ---
Report called to 3rd floor. Pt to transfer to Room 325 w/ 1:1 supervision and belongings.
--- NOTE | 2025-02-25 13:57 | W.PN.UPDATE ---
Update Note
Progress Note Update
Pt seen by me today, chart reviewed. Seen initially in am to determine if willing to be hospitalizaed voluntarily; at that time said yes (not very convincingly) but whn I returned states she wants to go home. Clear history of bipolar disorder and
substance use disorder, dangerous overdose which was only aborted by her alert boyfriend on a facetime call and diligent police work tracking her down.
On exam is insistent she is fine, has no need for meds (claims prescribed abilify makes her jumpy, likely akathisia.)
Agrees to low dose risperdal (declines offered lithium or depakote.)
Will need to keep on 302, bed search (last inpatient at [facility], has been at [facility] and [facility] as well.)
Ordering risperdal
--- NOTE | 2025-02-25 14:10 | CM ---
Addendum entered by Patricia Up 02/25/25 16:32:
Patient is requesting [facility], referral faxed along with 302 paperwork. [place] [phone]
Original Note:
Chart reviewed per psychiatry 302 upheld will make referrals to [facility], [place] and [facility]
Plan; Placement 302 upheld.
--- NOTE | 2025-02-25 14:44 | PTCARENOTE ---
Received pt from ICU at 1330 via wheelchair. Pt walked from wheelchair to chair in room by self. Accompanied by family at bedside and 1:1 supervision. Pt asked to shower, attending aware. VSS, no current complaints, plan of care ongoing.
[2025-02-25] MEDS: LOVENOX SC (16:42)
[2025-02-25] MEDS: RISPERDAL 0.5 MG PO (21:10)
--- NOTE | 2025-02-26 08:22 | CM ---
Addendum entered by Jackelynpatrick Tillman 02/26/25 15:44:
spoke with Itzel in admissions at [facility] who stated to arrange patient to transport to [facility] today with pending authorization #: [id number] which this information was given to her.
spoke with Patient mother Itzel Fry who was agreeable to patient going to [facility]
spoke with patient and grandmother at bedside
ORIGINAL 302 TO BE SENT WITH PATIENT - given to community reinvestment act officer
copy of 302 is in chart
PLAN: [facility] today
fax #: [phone]
transportation forms on chart, 7:30 transport set
Addendum entered by [facility] 02/26/25 14:43:
called again to insurance company - spoke with Thien no determination as of yet & they will call once approved
Addendum entered by [facility] 02/26/25 11:46:
spoke with Itzel from [facility] they can accept patient
[facility] TAX ID # [id number]
[facility] NPI #: [id number]
DR. HUMZA PENA NPI #: [id number]
MANUELA called [facility] & spoke to Thien , faxed clinicals to [phone]
Pending auth # [id number]
PLAN: [facility], ONCE AUTH APPROVED
Fax #: [phone]
Addendum entered by [facility] 02/26/25 10:37:
Call from Itzel at [facility] - requested CM to fax note requesting was poison control notified - Faxed her ER physician note to [phone]
also requested fax over labs indication Potassium level today - pending currently
Addendum entered by [facility] 02/26/25 08:49:
MANUELA spoke with Lady at [facility] in Admissions ([phone]) and referral was faxed to [phone]
CM spoke with Allyson in Admissions ([phone]) at [facility] and referral faxed [phone]
they will review referrals & get back to CM
Original Note:
CM called [facility] and spoke with Tre ([phone]) - no female beds available
CM to consider search for inpatient beds
Plan; Placement 302 upheld.
[2025-02-26] MEDS: NICODERM TRANSDERMAL 21 MG TRANSDERM (08:46)
[2025-02-26] MEDS: RISPERDAL 0.5 MG PO (08:46)
[2025-02-26] MEDS: VALIUM INJECTION 5 MG IV (08:50)
--- NOTE | 2025-02-26 10:15 | W.PN.HOSP.TC ---
Today's Communication/Plan
-
dispo planning to psych facility
Assessment / Plan
Assessment / Plan
IMPRESSION:
Suicidal ideation with intentional overdose of acetaminophen.
PLAN:
Acetaminophen overdose - level is 364 approximately 3 hours after intake.
- admitted to ICU
- s/p Fomepizole
- s/p 21 hour NAC protocol with doubling of the 16 hour bag
- LFTs, inr and acetaminophen level have remained WNL, Tylenol level now undetectable
- no need for further NAC
-appreciate Front Office Coordinator
-OK for DC to Psychiatric facility - will coordinate with CM
Suicidality
- 1:1
- psych consultation
- anxiolytics prn
DVT PPX - lovenox sq
Code status - Full Code
51 minutes spent on patient care
Anticipated Discharge: Within 24 hours
Subjective/Interval History
-
Date of Service: February 26, 2025
withdrawn
sleeping
per 1:1, patient ate breakfast
Objective Data
-
Labs:
Laboratory Results
02/26/25
10:05
Sodium Pending
Potassium Pending
Chloride Pending
Carbon Dioxide Pending
BUN Pending
Creatinine Pending
Glucose Pending
Calcium Pending
Total Bilirubin Pending
AST Pending
ALT Pending
Alkaline Phosphatase Pending
Vital Signs:
Vital Signs
Temp Pulse Resp BP Pulse Ox
98.1 F 82 16 121/76 100
02/25/25 23:03 02/25/25 23:03 02/25/25 23:03 02/25/25 23:03 02/25/25 23:03
I&O
02/25/25 02/26/25 02/27/25
06:59 06:59 06:59
Intake Total 1367.5 / 1367.5 570 / 570
Output Total 750 / 750
Balance 617.5 / 617.5 570 / 570
Review of Systems
-
History Source: Patient
All other systems: Reviewed and negative
Physical Exam
-
General: No Apparent Distress
HEENT: PERRLA
Respiratory: Clear to Auscultation; Negative Wheezes
Cardiac: Regular Rhythm and S1/S2
GI: Soft and Nontender
Musculoskeletal: No Edema
Skin: Warm and Dry; Negative Rash
Neuro: AO x 3
Psych: Depressed
Data Reviewed
-
Diagnostic Radiology: Report Reviewed by me
Labs: Labs Reviewed by me
--- NOTE | 2025-02-26 10:28 | PTCARENOTE ---
Upon morning introduction by nurse, pt began using foul language toward this nurse, saying she wants to get out of here, dropping F bombs continually, agitated and rude. Pt advised that this will not be tolerated, that we are here to help her. Pt
stated she can talk to this nurse any way she wants, this RN advised that will not be an effective course of action. 5mg IV Valium given with minimal impact, however, has since not been using further foul language. Pt agreed to lab work after
initially refusing it. Also, agreed to vital signs.
[2025-02-26 10:36] VITALS: BP 117/75
--- NOTE | 2025-02-26 10:50 | W.PN.UPDATE ---
Update Note
Progress Note Update
patient seen chart reviewed. spoke with nursing. patient has been quite angry. she received a valium prn earlier this am. she was not physically aggressive. she is very angry that she is hospitalized and feels hopeless and helpless vis a vis her
psych illness. no one in her opinion can help her. her father committed suicide she told me two years ago. she was reluctant to talk about it. she was rather reluctant to talk about anything. she answers no re questions pertaining to psychosis
although dr falcon with whom i spoke felt strongly that there is underlying psychosis. she told me she has no hobbies, no job, no interests. she said she has no bf although bf found her. she admits she does not want to live and that this was a
suicide attempt. spoke with cm who feels hopeful that [facility] will accept her. she was hosp about six times she told me the last about six months ago at [facility]. she did not feel it was helpful. she is currently taking risperdal. have decrease
valium to 2 mg instead of 5 as a prn and changed to po. will follow
[2025-02-26] MEDS: VALIUM 2 MG PO ×2 (11:13→16:15)
[2025-02-26 11:15] LABS: ALT (SGPT) 21 U/L (0-35); AST (SGOT) 26 U/L (14-36); Albumin 4.2 g/dl (3.5-5.0); Alkaline Phosphatase 40 U/L (38-126); Blood Urea Nitrogen 9 mg/dl (7-17); Calcium 9.6 mg/dl (8.4-10.2); Carbon Dioxide 21 mmol/L (22-30); Chloride 110 mmol/L (98-107); Estimated Creatinine Clearance > 125 ml/min; Glucose 147 mg/dl (70-99); Potassium 3.7 mmol/L (3.5-5.1); Sodium 138 mmol/L (135-145); Total Protein 7.4 g/dl (6.3-8.2); eGFR > 60.00
--- NOTE | 2025-02-26 13:53 | W.DCSUMMARY ---
Discharge Summary
Discharge Data
Date of Admission: 02/24/25
Date of Discharge: 02/26/25
-
Pending Results: No
Hospital Course
Discharging Physician : Dr. Liz Del Valle
Disposition : Inpatient Psychiatric Facility
Principal Discharge diagnosis : Acetaminophen Toxicity, Suicide Attempt
Hospital Course :
Ms. Lamar Saravia is a 25 yo woman with hx bipolar disorder, schizoaffective disorder with history of suicidal ideation and attempts in the past, medication non-compliance, presents to the emergency department after suicidal attempt with medication
overdose. Patient was found after vomiting, stated she took ibuprofen as well as Tylenol.
On arrival in the emergency department she was placed on a 302. Blood pressure was 113/81 with a pulse of 102 and she was satting 98% on room air. CBC was unremarkable, electrolytes BUN and creatinine were all normal. LFTs and INR were normal.
Tylenol level 364 about 3 hours post ingestion.
Toxicology was called. Patient was placed on Acetylcysteine. Her labs remained stable throughout the protocol and NAC was discontinued after 21 hours. Her Tylenol level became undetectable. Patient remains with SI and is discharged to an
inpatient Psychiatric facility.
Time spent on discharge was 35 minutes.
Important imaging findings :
CXR
IMPRESSION:
No acute cardiopulmonary process.
Procedure findings :
Discharge Plan
-
Patient Disposition: Psych Facility
Discharge Diagnosis/Procedures: Acetaminophen intoxication; suicide attempt
Diet: Regular
Activity: As tolerated
Bathing Restrictions: None
Referrals:
UNKNOWN - PT DOES,NOT KNOW [Family Provider]
Prescriptions:
New
diazepam 2 mg Tablet
2 mg PO TIDPRN PRN (Reason: agitation) Qty: 15 0RF
nicotine 21 mg/24 hr Patch 24 Hour
21 mg transdermal DAILY Qty: 21 0RF
risperidone 0.5 mg Tablet
0.5 mg PO BID Qty: 60 0RF
Discontinued
aripiprazole 15 mg tablet
15 mg PO DAILY
Depakote
Patient Comments:
pt's mother is unsure of dosage
Klonopin
Patient Comments:
pt's mother unsure of dosage
Discharge Orders:
Discharge Patient (As Directed); Ordered 02/26/25
Ordered By: Liz Del Valle
Discharge Date and Time
Print Language: KOREAN
[2025-02-26] MEDS: LOVENOX SC (16:11)
[2025-02-26 16:21] VITALS: BP 123/77
--- NOTE | 2025-02-26 17:51 | PTCARENOTE ---
Rn custom studio coordinator-Patient and mother requesting for patient to go to [facility]. Explained to mother that the plan and insurance approval was obtained earlier by outpatient case manager, and at this point patient has to go to [facility] as previously planned.
[2025-02-26 19:17] VITALS: BP 107/67
== END 2025-02-26 19:45 | DRG 918 ==
LOC: 3 WEST ACU 00:40
PROVIDERS: Nurse Practitioner Family; ADMITTING PHYSICIAN Internal Medicine; ATTENDING PHYSICIAN Student in an Organized Health Care Education/Training Program; CONSULT PHYSICIAN Internal Medicine; CONSULT PHYSICIAN Psychiatry & Neurology Psychiatry; EMERGENCY PHYSICIAN Emergency Medicine
DX: T39.1X2A Poisoning by 4-Aminophenol derivatives, intentional self-harm, initial encounter (principal); F31.30 Bipolar disorder, current episode depressed, mild or moderate severity, unspecified; F25.9 Schizoaffective disorder, unspecified; Z91.148 Patient's other noncompliance with medication regimen for other reason; J45.909 Unspecified asthma, uncomplicated; Z91.51 Personal history of suicidal behavior
CPT/HCPCS: 71045; 80053; 80076; 80143; 80179; 82077; 82248; 82962; 83735; 84703; 85025; 85027; 85610; 85730; 93005; 96374; 96375; 99291; J0132; J1451; J7030